=== PATIENT | male | born 1950 | race Caucasian/White ===

== ENCOUNTER 2018-11-26 12:28 | Inpatient (IN) | payer MEDICARE, OTHER ==
[2018-11-26 15:08] LABS: IRON 54 ug/dl (35-150)
[2018-11-26 15:10] LABS: ALANINE AMINOTRANSFERASE 42 IU/L (13-69); ALBUMIN 4.1 g/dl (3.3-4.9); ALBUMIN/GLOBULIN RATIO 1.24; ALKALINE PHOSPHATASE 57 IU/L (42-121); ANION GAP 12 (5-13); ASPARTATE AMINO TRANSFERASE 28 IU/L (15-46); BILIRUBIN,INDIRECT 0.9 mg/dl (0-1.1); BILIRUBIN,TOTAL 0.9 mg/dl (0.2-1.3); BLOOD UREA NITROGEN 14 mg/dl (7-20); CALCIUM 9.2 mg/dl (8.4-10.2); CARBON DIOXIDE 28 mmol/L (21-31); CHLORIDE 98 mmol/L (97-110); CREATININE 0.76 mg/dl (0.61-1.24); Estimated GFR > 60 mL/min (>60); GLUCOSE 150 mg/dl (70-220); LACTATE DEHYDROGENASE 509 IU/L (313-618); POTASSIUM 4.4 mmol/L (3.5-5.1); SODIUM 138 mmol/L (135-144); TOTAL PROTEIN 7.4 g/dl (6.1-8.1)
[2018-11-26 15:17] LABS: % IRON SATURATION 17 % SAT (22-52); TOTAL IRON BINDING CAPACITY 327 ug/dl (241-421)
[2018-11-26 15:57] LABS: WHITE BLOOD COUNT 8.1 10^3/ul (4.8-10.8)
[2018-11-26 15:57] LABS: ABNORMAL IP MESSAGE 1; HEMATOCRIT 37.8 % (42.0-52.0); HEMOGLOBIN 12.8 g/dl (14.0-18.0); MEAN CORPUSCULAR HEMOGLOBIN 30.5 pg (29.0-33.0); MEAN CORPUSCULAR HGB CONC 33.9 g/dl (32.0-37.0); MEAN CORPUSCULAR VOLUME 90.2 fl (82.0-101.0); POSITIVE DIFF @See below; RED BLOOD COUNT 4.19 10^6/ul (4.70-6.10); RED CELL DISTRIBUTION WIDTH 11.3 % (11.5-14.5)
[2018-11-26] MEDS: CEFTRIAXONE 1 GM/50 ML (PMX) 50 ML IVPB (16:04)
[2018-11-26 16:08] LABS: ADD MAN DIFF? YES
[2018-11-26 16:22] LABS: ADD UMIC YES; UR ASCORBIC ACID NEGATIVE (NEGATIVE); UR BACTERIA FEW /HPF (NONE SEEN); UR BILIRUBIN (Dip) NEGATIVE (NEGATIVE); UR BLOOD (Dip) 3+ mg/dL (NEGATIVE); UR CLARITY SLIGHTLY CLOUDY (CLEAR); UR COLOR YELLOW (YELLOW); UR GLUCOSE (Dip) NEGATIVE (NEGATIVE); UR KETONES (Dip) NEGATIVE (NEGATIVE); UR LEUKOCYTE ESTERASE (Dip) NEGATIVE Leu/ul (NEGATIVE); UR MUCUS FEW /HPF (NONE SEEN); UR NITRITE (Dip) NEGATIVE (NEGATIVE); UR RBC 130 /HPF (0-5); UR SPECIFIC GRAVITY (Dip) 1.016 (1.003-1.030); UR TOTAL PROTEIN (Dip) NEGATIVE (NEGATIVE); UR UROBILINOGEN (Dip) NEGATIVE (NEGATIVE); UR WBC 4 /HPF (0-5)
[2018-11-26 16:28] LABS: B-TYPE NATRIURETIC PEPTIDE 613 PG/ML (0-125)
[2018-11-26 16:41] LABS: BAND NEUTROPHILS % (M) 1 % (0-4); BASOPHILS % (M) 1 % (0-2); EOSINOPHILS % (M) 2 % (0-7); LYMPHOCYTES #M 1.2 10^3/ul (0.8-2.9); LYMPHOCYTES % (M) 16 % (15-51); MONOCYTE #M 0.7 10^3/ul (0.3-0.9); MONOCYTES % (M) 9 % (0-11); PLATELET ESTIMATE SIG DECREASED; REACTIVE LYMPHOCYTES #M 0.3 10^3/ul (0.0-0.0); REACTIVE LYMPHOCYTES% (M) 4 % (0-0); SEG NEUT #M 5.4 10^3/ul (1.6-7.5); SEGMENTED NEUTROPHILS (M) % 67 % (39-77); SMUDGE%M 3 % (0-0)
[2018-11-26] MEDS: AZITHROMYCIN 500MG/NS (PMX) 250 ML IV (16:52)
[2018-11-26] MEDS ORDERED: ACETAMINOPHEN 325 MG TAB PO (17:00)
[2018-11-26] MEDS ORDERED: ONDANSETRON 4 MG INJ IV ×2 (17:00→19:30)
[2018-11-26] MEDS ORDERED: HYDROCODONE/APAP (5/325) TAB PO (19:30)
[2018-11-26] MEDS ORDERED: GLUCAGON 1 MG INJ IM (19:30)
[2018-11-26] MEDS ORDERED: DOCUSATE SODIUM 100 MG CAP PO (19:30)
[2018-11-26] MEDS ORDERED: morphine 2 MG INJ IV (19:30)
[2018-11-26] MEDS ORDERED: GLUCOSE GEL 15 GRAM TUBE PO ×2 (19:30)
[2018-11-26] MEDS ORDERED: DEXTROSE 50% 50 ML SYRINGE IV ×2 (19:30)
[2018-11-26] MEDS ORDERED: NACL 0.9% 3 ML SYG IV (19:30)
[2018-11-26] MEDS ORDERED: GLUCOSE GEL 15 GRAM TUBE BUCCAL (19:30)
[2018-11-26] MEDS: INSULIN ASPART [NOVOLOG] 3 ML PEN SC (21:00)
[2018-11-26] MEDS: INSULIN GLARGINE [LANTus] (100 UNITS/ML) SYG SC (22:25)
[2018-11-26] MEDS: DEXAMETHASONE 4 MG TAB PO (22:34)
[2018-11-26 23:42] LABS: TYPE AND SCREEN 1 1
[2018-11-27] MEDS: ACCU-CHEK XX (02:00)
[2018-11-27 05:37] LABS: ABNORMAL IP MESSAGE 1; HEMOGLOBIN 12.5 g/dl (14.0-18.0); MEAN CORPUSCULAR HEMOGLOBIN 31.2 pg (29.0-33.0); MEAN CORPUSCULAR HGB CONC 34.7 g/dl (32.0-37.0); MEAN CORPUSCULAR VOLUME 89.8 fl (82.0-101.0); POSITIVE DIFF @See below; RED BLOOD COUNT 4.01 10^6/ul (4.70-6.10); RED CELL DISTRIBUTION WIDTH 11.4 % (11.5-14.5)
[2018-11-27 05:37] LABS: WHITE BLOOD COUNT 7.1 10^3/ul (4.8-10.8)
[2018-11-27 05:43] LABS: HEMOGLOBIN A1C 6.5 % (0-5.9)
[2018-11-27 06:07] LABS: ANION GAP 12 (5-13); BLOOD UREA NITROGEN 14 mg/dl (7-20); CALCIUM 9.2 mg/dl (8.4-10.2); CARBON DIOXIDE 29 mmol/L (21-31); CHLORIDE 97 mmol/L (97-110); CREATININE 0.77 mg/dl (0.61-1.24); Estimated GFR > 60 mL/min (>60); GLUCOSE 230 mg/dl (70-220); MAGNESIUM 2.2 mg/dl (1.7-2.5); PHOSPHORUS 2.3 mg/dl (2.5-4.9); POTASSIUM 4.5 mmol/L (3.5-5.1); SODIUM 138 mmol/L (135-144)
[2018-11-27 06:27] LABS: ADD MAN DIFF? YES; PLATELET COUNT 1 10^3/UL (140-415)
[2018-11-27] MEDS: DEXAMETHASONE 4 MG TAB PO ×2 (09:00→10:57)
[2018-11-27] MEDS ORDERED: IMMUNE GLOBULIN (HUMAN) 6 GM INJ IV (09:00)
[2018-11-27] MEDS: AMLODIPINE 10 MG TAB PO (09:00)
[2018-11-27] MEDS: LOSARTAN 50 MG TAB PO ×2 (09:00→10:55)
[2018-11-27 09:37] LABS: LYMPHOCYTES #M 0.7 10^3/ul (0.8-2.9); LYMPHOCYTES % (M) 11 % (15-51); MONOCYTE #M 0.2 10^3/ul (0.3-0.9); MONOCYTES % (M) 3 % (0-11); PLATELET ESTIMATE SIG DECREASED; REACTIVE LYMPHOCYTES% (M) 1 % (0-0); SEGMENTED NEUTROPHILS (M) % 85 % (39-77)
[2018-11-27] MEDS ORDERED: INFLUENZA VIRUS VACCINE 0.5 ML (DISPENSING) IM* (10:00)
[2018-11-27] MEDS: INSULIN ASPART [NOVOLOG] 3 ML PEN SC ×7 (10:04→21:09)
[2018-11-27] MEDS: FAMOTIDINE 20 MG TAB PO ×2 (14:00→21:07)
[2018-11-27] MEDS: EVAC CONTAINER XX (14:40)
[2018-11-27] MEDS: IMMUNE GLOBULIN XX (14:40)
[2018-11-27] MEDS: INSULIN GLARGINE [LANTus] (100 UNITS/ML) SYG SC (21:10)
[2018-11-28 01:36] LABS: ANION GAP 11 (5-13); BLOOD UREA NITROGEN 20 mg/dl (7-20); CALCIUM 9.4 mg/dl (8.4-10.2); CARBON DIOXIDE 28 mmol/L (21-31); CHLORIDE 96 mmol/L (97-110); CREATININE 0.77 mg/dl (0.61-1.24); Estimated GFR > 60 mL/min (>60); GLUCOSE 261 mg/dl (70-220); POTASSIUM 4.7 mmol/L (3.5-5.1); SODIUM 135 mmol/L (135-144)
[2018-11-28] MEDS: ZOLPIDEM 5 MG TAB PO (02:14)
[2018-11-28] MEDS ORDERED: hydrALAzine 20 MG INJ IV (02:30)
[2018-11-28 05:42] LABS: ADD MAN DIFF? NO
[2018-11-28 05:50] LABS: WHITE BLOOD COUNT 15.3 10^3/ul (4.8-10.8)
[2018-11-28 05:50] LABS: ABNORMAL IP MESSAGE 1; BASOPHILS % 0.1 % (0.0-2.0); HEMATOCRIT 35.4 % (42.0-52.0); HEMOGLOBIN 12.4 g/dl (14.0-18.0); LYMPHOCYTES % 6.4 % (15.0-51.0); MEAN CORPUSCULAR VOLUME 88.5 fl (82.0-101.0); MEAN PLATELET VOLUME 9.1 fl (7.4-10.4); MONOCYTE # 0.8 10^3/ul (0.3-0.9); MONOCYTES % 5.4 % (0.0-11.0); NEUTROPHIL # 13.5 10^3/ul (1.6-7.5); NEUTROPHILS % 87.6 % (39.0-77.0); POSITIVE DIFF @See below; RED CELL DISTRIBUTION WIDTH 11.1 % (11.5-14.5)
[2018-11-28 06:08] LABS: PLATELET COUNT 3 10^3/UL (140-415)
[2018-11-28 06:28] LABS: ANION GAP 12 (5-13); BLOOD UREA NITROGEN 20 mg/dl (7-20); CALCIUM 9.2 mg/dl (8.4-10.2); CARBON DIOXIDE 23 mmol/L (21-31); CHLORIDE 100 mmol/L (97-110); CREATININE 0.72 mg/dl (0.61-1.24); Estimated GFR > 60 mL/min (>60); GLUCOSE 275 mg/dl (70-220); POTASSIUM 4.4 mmol/L (3.5-5.1); SODIUM 135 mmol/L (135-144)
[2018-11-28] MEDS: INSULIN ASPART [NOVOLOG] 3 ML PEN SC ×7 (07:58→20:51)
[2018-11-28] MEDS: FAMOTIDINE 20 MG TAB PO ×2 (08:35→20:48)
[2018-11-28] MEDS: DEXAMETHASONE 4 MG TAB PO (08:37)
[2018-11-28 16:16] LABS: TRANSFERRIN 234 mg/dL (188-341)
[2018-11-28] MEDS: EVAC CONTAINER XX (16:44)
[2018-11-28] MEDS: IMMUNE GLOBULIN XX (16:44)
[2018-11-28] MEDS: ACETAMINOPHEN 325 MG TAB PO (17:00)
[2018-11-28] MEDS ORDERED: INSULIN GLARGINE [LANTus] (100 UNITS/ML) SYG SC (20:00)
[2018-11-28] MEDS: INSULIN GLARGINE [LANTus] (100 UNITS/ML) SYG SC (20:53)
[2018-11-29] MEDS: DEXAMETHASONE 4 MG TAB PO (08:32)
[2018-11-29] MEDS: FAMOTIDINE 20 MG TAB PO ×2 (08:33→20:37)
[2018-11-29] MEDS: INSULIN ASPART [NOVOLOG] 3 ML PEN SC ×7 (08:38→20:36)
[2018-11-29 10:56] LABS: ADD MAN DIFF? NO
[2018-11-29 10:59] LABS: ABNORMAL IP MESSAGE 1; BASOPHILS % 0.1 % (0.0-2.0); HEMATOCRIT 32.7 % (42.0-52.0); HEMOGLOBIN 11.7 g/dl (14.0-18.0); LYMPHOCYTES # 0.9 10^3/ul (0.8-2.9); LYMPHOCYTES % 6.4 % (15.0-51.0); MEAN CORPUSCULAR HGB CONC 35.8 g/dl (32.0-37.0); MEAN CORPUSCULAR VOLUME 89.3 fl (82.0-101.0); MONOCYTE # 0.6 10^3/ul (0.3-0.9); MONOCYTES % 4.6 % (0.0-11.0); NEUTROPHIL # 12.1 10^3/ul (1.6-7.5); NEUTROPHILS % 87.5 % (39.0-77.0); POSITIVE DIFF @See below; RED BLOOD COUNT 3.66 10^6/ul (4.70-6.10); RED CELL DISTRIBUTION WIDTH 11.5 % (11.5-14.5)
[2018-11-29 10:59] LABS: WHITE BLOOD COUNT 13.8 10^3/ul (4.8-10.8)
[2018-11-29 11:17] LABS: PLATELET COUNT 1 10^3/UL (140-415)
[2018-11-29 11:21] LABS: ALANINE AMINOTRANSFERASE 44 IU/L (13-69); ALBUMIN 3.8 g/dl (3.3-4.9); ALBUMIN/GLOBULIN RATIO 0.92; ALKALINE PHOSPHATASE 56 IU/L (42-121); ANION GAP 11 (5-13); ASPARTATE AMINO TRANSFERASE 30 IU/L (15-46); BILIRUBIN,INDIRECT 0.8 mg/dl (0-1.1); BILIRUBIN,TOTAL 0.8 mg/dl (0.2-1.3); BLOOD UREA NITROGEN 23 mg/dl (7-20); CALCIUM 8.8 mg/dl (8.4-10.2); CARBON DIOXIDE 29 mmol/L (21-31); CHLORIDE 95 mmol/L (97-110); CREATININE 0.89 mg/dl (0.61-1.24); Estimated GFR > 60 mL/min (>60); GLUCOSE 296 mg/dl (70-220); POTASSIUM 4.7 mmol/L (3.5-5.1); SODIUM 135 mmol/L (135-144); TOTAL PROTEIN 7.9 g/dl (6.1-8.1)
[2018-11-29 11:22] LABS: MEAN PLATELET VOLUME 13.7 fl (7.4-10.4); PLATELET COUNT 23 10^3/UL (140-415)
[2018-11-29] MEDS: EVAC CONTAINER XX (12:55)
[2018-11-29] MEDS: IMMUNE GLOBULIN XX (12:55)
[2018-11-29 13:31] LABS: PATH REVIEW? YES
[2018-11-29] MEDS: metFORMIN 500 MG TAB PO (18:15)
[2018-11-29] MEDS: INSULIN GLARGINE [LANTus] (100 UNITS/ML) SYG SC (20:36)
[2018-11-30 05:20] LABS: ADD MAN DIFF? NO
[2018-11-30 05:29] LABS: ABNORMAL IP MESSAGE 1; BASOPHILS % 0.1 % (0.0-2.0); HEMATOCRIT 30.4 % (42.0-52.0); LYMPHOCYTES # 1.4 10^3/ul (0.8-2.9); LYMPHOCYTES % 8.4 % (15.0-51.0); MEAN CORPUSCULAR HEMOGLOBIN 32.5 pg (29.0-33.0); MEAN CORPUSCULAR HGB CONC 36.2 g/dl (32.0-37.0); MEAN CORPUSCULAR VOLUME 89.9 fl (82.0-101.0); MEAN PLATELET VOLUME 12.4 fl (7.4-10.4); MONOCYTE # 1.4 10^3/ul (0.3-0.9); MONOCYTES % 8.3 % (0.0-11.0); NEUTROPHIL # 13.2 10^3/ul (1.6-7.5); NEUTROPHILS % 80.7 % (39.0-77.0); NUCLEATED RED BLOOD CELLS% 0.2 /100WBC (0.0-0.0); PLATELET COUNT 46 10^3/UL (140-415); POSITIVE DIFF @See below; RED BLOOD COUNT 3.38 10^6/ul (4.70-6.10); RED CELL DISTRIBUTION WIDTH 11.6 % (11.5-14.5)
[2018-11-30 05:29] LABS: WHITE BLOOD COUNT 16.3 10^3/ul (4.8-10.8)
[2018-11-30] MEDS: DEXAMETHASONE 4 MG TAB PO (08:36)
[2018-11-30] MEDS: metFORMIN 500 MG TAB PO ×2 (08:38→17:42)
[2018-11-30] MEDS: INSULIN ASPART [NOVOLOG] 3 ML PEN SC ×8 (08:39→21:00)
[2018-11-30] MEDS: FAMOTIDINE 20 MG TAB PO ×2 (08:41→20:57)
[2018-11-30] MEDS: LINAGLIPTIN 5 MG TABLET PO (13:20)
[2018-11-30] MEDS: IMMUNE GLOBULIN XX (13:24)
[2018-11-30] MEDS: EVAC CONTAINER XX (13:24)
[2018-11-30] MEDS ORDERED: NPH, HUMAN INSULIN ISOPHANE 3ML VIAL SC (20:00)
[2018-11-30] MEDS: INSULIN GLARGINE [LANTus] (100 UNITS/ML) SYG SC (21:02)
[2018-12-01 04:57] LABS: ADD MAN DIFF? NO
[2018-12-01 05:02] LABS: WHITE BLOOD COUNT 18.1 10^3/ul (4.8-10.8)
[2018-12-01 05:02] LABS: ABNORMAL IP MESSAGE 1; BASOPHIL # 0.1 10^3/ul (0.0-0.1); BASOPHILS % 0.3 % (0.0-2.0); HEMATOCRIT 30.9 % (42.0-52.0); HEMOGLOBIN 11.3 g/dl (14.0-18.0); LYMPHOCYTES # 1.9 10^3/ul (0.8-2.9); LYMPHOCYTES % 10.3 % (15.0-51.0); MEAN CORPUSCULAR HEMOGLOBIN 33.2 pg (29.0-33.0); MEAN CORPUSCULAR HGB CONC 36.6 g/dl (32.0-37.0); MEAN CORPUSCULAR VOLUME 90.9 fl (82.0-101.0); MEAN PLATELET VOLUME 11.2 fl (7.4-10.4); MONOCYTE # 1.4 10^3/ul (0.3-0.9); NEUTROPHILS % 77.4 % (39.0-77.0); NUCLEATED RED BLOOD CELLS # 0.2 10^3/ul (0.0-0.0); NUCLEATED RED BLOOD CELLS% 1.2 /100WBC (0.0-0.0); PLATELET COUNT 99 10^3/UL (140-415); POSITIVE DIFF @See below; RED CELL DISTRIBUTION WIDTH 11.8 % (11.5-14.5)
[2018-12-01] MEDS: DEXAMETHASONE 4 MG TAB PO (09:42)
[2018-12-01] MEDS: NPH, HUMAN INSULIN ISOPHANE 3ML VIAL SC (09:45)
[2018-12-01] MEDS: INSULIN ASPART [NOVOLOG] 3 ML PEN SC ×7 (09:46→21:10)
[2018-12-01] MEDS: metFORMIN 500 MG TAB PO ×2 (09:48→17:54)
[2018-12-01] MEDS: FAMOTIDINE 20 MG TAB PO ×2 (09:49→21:03)
[2018-12-01] MEDS: LINAGLIPTIN 5 MG TABLET PO (09:49)
[2018-12-01] MEDS: INSULIN GLARGINE [LANTus] (100 UNITS/ML) SYG SC (21:12)
[2018-12-02 05:08] LABS: ADD MAN DIFF? NO
[2018-12-02 05:11] LABS: WHITE BLOOD COUNT 19.4 10^3/ul (4.8-10.8)
[2018-12-02 05:11] LABS: BASOPHILS % 0.2 % (0.0-2.0); HEMATOCRIT 30.9 % (42.0-52.0); LYMPHOCYTES # 2.1 10^3/ul (0.8-2.9); LYMPHOCYTES % 10.6 % (15.0-51.0); MEAN CORPUSCULAR HEMOGLOBIN 32.5 pg (29.0-33.0); MEAN CORPUSCULAR HGB CONC 35.6 g/dl (32.0-37.0); MEAN CORPUSCULAR VOLUME 91.4 fl (82.0-101.0); MEAN PLATELET VOLUME 10.9 fl (7.4-10.4); MONOCYTE # 1.5 10^3/ul (0.3-0.9); MONOCYTES % 7.5 % (0.0-11.0); NEUTROPHILS % 77.3 % (39.0-77.0); NUCLEATED RED BLOOD CELLS # 0.5 10^3/ul (0.0-0.0); NUCLEATED RED BLOOD CELLS% 2.4 /100WBC (0.0-0.0); PLATELET COUNT 143 10^3/UL (140-415); RED BLOOD COUNT 3.38 10^6/ul (4.70-6.10); RED CELL DISTRIBUTION WIDTH 12.3 % (11.5-14.5)
[2018-12-02] MEDS: DEXAMETHASONE 4 MG TAB PO (08:42)
[2018-12-02] MEDS: metFORMIN 500 MG TAB PO (08:43)
[2018-12-02] MEDS: FAMOTIDINE 20 MG TAB PO (08:43)
[2018-12-02] MEDS: LINAGLIPTIN 5 MG TABLET PO (08:43)
[2018-12-02] MEDS: INSULIN ASPART [NOVOLOG] 3 ML PEN SC ×4 (08:48→12:54)
[2018-12-02] MEDS: NPH, HUMAN INSULIN ISOPHANE 3ML VIAL SC (08:50)
[2018-12-02] MEDS ORDERED: INSULIN GLARGINE [LANTus] (100 UNITS/ML) SYG SC (20:00)
== END 2018-12-02 16:30 | disposition home or self-care (01) | DRG 813 ==
LOC: MS1 11-28 15:52 → FTE 12:28 → ICU 16:37
PROVIDERS: Internal Medicine
PROC: 30233R1 Transfusion of Nonautologous Platelets into Peripheral Vein, Percutaneous Approach (ICD-10-PCS; principal; 2018-11-26)
DX: D69.3 Immune thrombocytopenic purpura (principal); B08.4 Enteroviral vesicular stomatitis with exanthem; D69.6 Thrombocytopenia, unspecified; I25.10 Atherosclerotic heart disease of native coronary artery without angina pectoris; I10 Essential (primary) hypertension; E09.65 Drug or chemical induced diabetes mellitus with hyperglycemia; E66.9 Obesity, unspecified; E78.5 Hyperlipidemia, unspecified; T38.0X5A Adverse effect of glucocorticoids and synthetic analogues, initial encounter; Z68.34 Body mass index [BMI] 34.0-34.9, adult; Z79.4 Long term (current) use of insulin; Z95.1 Presence of aortocoronary bypass graft
CPT/HCPCS: 36430; 70450; 71045; 76700; 80048; 80053; 81001; 82728; 82962; 83036; 83540; 83615; 83735; 83880; 84100; 84466; 85025; 86644; 86850; 86900; 86901; 87040; 87081; 93005; 96374; 99291-25

== ENCOUNTER 2019-03-21 17:37 | Emergency (ER) | payer MEDICARE, OTHER ==
[2019-03-21 18:36] LABS: ADD MAN DIFF? NO
[2019-03-21 18:42] LABS: WHITE BLOOD COUNT 5.3 10^3/ul (4.8-10.8)
[2019-03-21 18:42] LABS: BASOPHILS % 0.4 % (0.0-2.0); EOSINOPHILS # 0.1 10^3/ul (0.0-0.5); EOSINOPHILS % 0.9 % (0.0-7.0); HEMATOCRIT 41.8 % (42.0-52.0); LYMPHOCYTES # 1.7 10^3/ul (0.8-2.9); LYMPHOCYTES % 31.4 % (15.0-51.0); MEAN CORPUSCULAR HEMOGLOBIN 29.9 pg (29.0-33.0); MEAN CORPUSCULAR HGB CONC 33.5 g/dl (32.0-37.0); MEAN CORPUSCULAR VOLUME 89.3 fl (82.0-101.0); MEAN PLATELET VOLUME 10.6 fl (7.4-10.4); MONOCYTE # 0.5 10^3/ul (0.3-0.9); MONOCYTES % 8.9 % (0.0-11.0); NEUTROPHIL # 3.1 10^3/ul (1.6-7.5); NEUTROPHILS % 58.2 % (39.0-77.0); PLATELET COUNT 107 10^3/UL (140-415); RED BLOOD COUNT 4.68 10^6/ul (4.70-6.10); RED CELL DISTRIBUTION WIDTH 11.8 % (11.5-14.5)
[2019-03-21 19:00] LABS: ALANINE AMINOTRANSFERASE 40 IU/L (13-69); ALBUMIN 4.2 g/dl (3.3-4.9); ALBUMIN/GLOBULIN RATIO 1.44; ALKALINE PHOSPHATASE 62 IU/L (42-121); ANION GAP 8 (5-13); ASPARTATE AMINO TRANSFERASE 24 IU/L (15-46); BILIRUBIN,INDIRECT 0.4 mg/dl (0-1.1); BILIRUBIN,TOTAL 0.4 mg/dl (0.2-1.3); BLOOD UREA NITROGEN 20 mg/dl (7-20); CALCIUM 9.8 mg/dl (8.4-10.2); CARBON DIOXIDE 27 mmol/L (21-31); CHLORIDE 106 mmol/L (97-110); CREATININE 1.25 mg/dl (0.61-1.24); Estimated GFR 57 mL/min (>60); GLUCOSE 188 mg/dl (70-220); INR 1.21; POTASSIUM 4.5 mmol/L (3.5-5.1); PROTIME 15.4 Sec (11.9-14.9); PT RATIO 1.2; SODIUM 141 mmol/L (135-144); TOTAL PROTEIN 7.1 g/dl (6.1-8.1)
[2019-03-21 19:08] LABS: B-TYPE NATRIURETIC PEPTIDE 198 PG/ML (0-125)
[2019-03-21 19:13] LABS: TROPONIN-I < 0.012 ng/ml (0.000-0.120)
[2019-03-21 19:42] LABS: URINE BLOOD (Dip) POC Trace-intact (NEGATIVE); URINE GLUCOSE (Dip) POC Negative (NEGATIVE); URINE KETONES (Dip) POC Negative (NEGATIVE); URINE LEUKOCYTE EST (Dip) POC Negative (NEGATIVE); URINE NITRITE (Dip) POC Negative (NEGATIVE); URINE TOTAL PROTEIN POC Negative (NEGATIVE)
[2019-03-21 19:42] LABS: URINE PH (Dip) POC 6.5 (5.0-8.5)
== END 2019-03-21 20:28 | disposition home or self-care (01) ==
LOC: E/R 17:37
DX: R60.0 Localized edema (principal); D69.3 Immune thrombocytopenic purpura; R79.89 Other specified abnormal findings of blood chemistry; I10 Essential (primary) hypertension; I25.10 Atherosclerotic heart disease of native coronary artery without angina pectoris; E11.9 Type 2 diabetes mellitus without complications; Z79.84 Long term (current) use of oral hypoglycemic drugs; Z95.1 Presence of aortocoronary bypass graft
CPT/HCPCS: 36415; 71045; 80053; 81003; 83880; 84484; 85025; 85610; 85730; 93970; 99285-25